=== PATIENT | male | born 1965 | race Caucasian/White ===

== ENCOUNTER 2020-08-27 02:52 | Emergency (ER) | payer SELFPAY ==
[~2020-08-27] VITALS: Ht 177.8 cm; Wt 109.0 kg
--- NOTE | 2020-08-27 03:15 | NUR ---
PT WHEELED BACK TO ROOM AT THIS TIME, UA SENT TO LAB, SHEILA RIVERA AT FOR EVAL AND POC
[2020-08-27] MEDS ORDERED: KETOROLAC 30 MG/1 ML IVPush ONE (03:30)
[2020-08-27] MEDS ORDERED: ONDANSETRON 2MG/ML, 2ML IVPush ONE ×2 (03:30→06:30)
[2020-08-27] MEDS ORDERED: ONDANSETRON 2MG/ML, 2ML ONE ×2 (03:36→05:44)
[2020-08-27] MEDS ORDERED: KETOROLAC 30 MG/1 ML ONE (03:36)
[2020-08-27 03:41] LABS: BASOPHILS % (AUTO) 0 % (0-1); EOSINOPHILS % (AUTO) 1 % (1-7); LYMPHOCYTES % (AUTO) 9 % (22-44); MEAN CORPUSCULAR HEMOGLOBIN 29.9 pg (27.5-34.5); MEAN CORPUSCULAR HGB CONC 34.8 g/dL (33.2-36.2); MEAN PLATELET VOLUME 6.9 fL (7.4-10.4); MONOCYTES % (AUTO) 3 % (2-9); NEUTROPHILS % (AUTO) 87 % (42-75); PLATELET COUNT 309 x10^3/uL (130-400); RED BLOOD COUNT 5.54 x10^6/uL (4.38-5.82); RED CELL DISTRIBUTION WIDTH 12.7 % (9.4-14.8)
--- NOTE | 2020-08-27 03:41 | NUR ---
IV PLACED. BLOOD DRAWN AND SENT TO LAB. MEDICATED. AWAITING CT SCAN.
[2020-08-27 03:48] LABS: MICROSCOPIC AUTO
[2020-08-27 03:51] LABS: ALBUMIN 4.1 g/dL (3.4-5.0); ANION GAP 8 mmol/L (5-15); CALCIUM 8.9 mg/dL (8.5-10.1); CHLORIDE 105 mmol/L (98-107)
[2020-08-27 03:52] LABS: MD NO
--- NOTE | 2020-08-27 03:55 | NUR ---
BACK FROM CT SCAN. AWAITING RESULT.
[2020-08-27 04:46] VITALS: BP 120/81
--- NOTE | 2020-08-27 04:46 | NUR ---
ERP AT BEDSIDE FOR RE-EVALUATION.
[2020-08-27] MEDS ORDERED: MORPHINE SULFATE 4 MG/ML, 1ML ONE (05:44)
--- NOTE | 2020-08-27 05:50 | NUR ---
PATIENT SUDDENLY FEELING DIZZY AND DIAPHORETIC. C/O RUQ PAIN DESCRIBED CRAMPS. MD AT BEDSIDE.
--- NOTE | 2020-08-27 06:00 | NUR ---
PATIENT MEDICATED FOR PAIN AND NAUSEA. IVG STARTED.
[2020-08-27] MEDS ORDERED: MORPHINE SULFATE 4 MG/ML, 1ML IVPush ONE (06:30)
[2020-08-27] MEDS ORDERED: SODIUM CHLORIDE 0.9% 1,000ML IVBOLUS ONE (06:30)
--- NOTE | 2020-08-27 06:57 | NUR ---
PT REPORT FROM LEROY DUVAL
--- NOTE | 2020-08-27 08:10 | NUR ---
PT REC'VD DISCHARGE INSTRUCTIONS AND EDUCATION. PT HAD NO FURTHER QUESTIONS. PT PROVIDED URINARY STRAINER. PT AMBULATED TO IN AREA, STEADY GAIT.
== END 2020-08-27 08:12 | disposition home or self-care (01) ==
LOC: ED 06:26
DX: N13.2 Hydronephrosis with renal and ureteral calculous obstruction (principal); K43.9 Ventral hernia without obstruction or gangrene; N23 Unspecified renal colic; R31.9 Hematuria, unspecified; R11.10 Vomiting, unspecified; Z87.891 Personal history of nicotine dependence
CPT/HCPCS: 36415; 74176; 80048; 81001; 82040; 85025; 96361; 96374; 96375; 96376; 99284; J1885; J2270; J2405; J7030